=== PATIENT | female | born 1980 | race American Indian/Alaskan Native ===

== ENCOUNTER 2019-03-22 14:08 | Emergency (ER) | payer OTHER ==
--- NOTE | 2019-03-22 14:15 | Emergency Department Report ---
Blank Doc - Documentation Documentation: This is a 38-year-old female that presents with back pain and body aches. Den ies any urinary symptoms. This initial assessment/diagnostic orders/clinical plan/treatment(s) is/are subject to change based on patient's health status, clinical progression and re- assessment by fellow clinical providers in the ED. Further treatment and workup at subsequent clinical providers discretion. Patient/guardians urged not to elope from the ED as their condition may be serious if not clinically assessed and managed. Initial orders include: 1- Patient sent to [facility] for further evaluation and treatment 2- labs 3- UA
[2019-03-22 14:33] LABS: Basophils % (Auto) 0.2 % (0.0-1.8); Hematocrit 37.1 % (30.3-42.9); Lymphocytes # (Auto) 0.6 K/mm3 (1.2-5.4); Lymphocytes % (Auto) 4.8 % (13.4-35.0); Mean Corpuscular HGB Conc 35 % (30-34); Mean Corpuscular Volume 87 fl (79-97); Monocytes # (Auto) 0.9 K/mm3 (0.0-0.8); Monocytes % (Auto) 6.8 % (0.0-7.3); Platelet Count 202 K/mm3 (140-440); Red Blood Count 4.29 M/mm3 (3.65-5.03); Red Cell Distribution Width 12.5 % (13.2-15.2)
[2019-03-22 14:53] LABS: BUN/Creatinine Ratio 8; Blood Urea Nitrogen 5 mg/dL (7-17); Calcium 8.8 mg/dL (8.4-10.2); Hemolysis Index 1
[2019-03-22] MEDS ORDERED: MORPHINE IV ONE (15:39)
[2019-03-22] MEDS ORDERED: ZOFRAN IV ONE (15:39)
[2019-03-22] MEDS ORDERED: NACL 0.9% 1000 ML 1,000 ML IV ONE (15:39)
[2019-03-22] MEDS ORDERED: TYLENOL PO ONE (15:40)
[2019-03-22] MEDS ORDERED: ROCEPHIN/NS 1 GM/50 ML 1 GM/50 ML BAG IV ONE (15:40)
--- NOTE | 2019-03-22 15:44 | Emergency Department Report ---
ED Abdominal Pain HPI - General Chief Complaint: Pain General Stated Complaint: BODY PAIN Time Seen by Provider: 03/22/19 14:13 Source: patient Mode of arrival: Ambulatory Limitations: No Limitations - History of Present Illness Initial Comments: Patient is a 38-year-old female with no significant past medical history. Patient presented to the ER complaining of fever, bilateral flank pain and lower abdominal pain since yesterday. Patient stated that she is nauseated but no vomiting. No diarrhea. Patient denied any chest pain or shortness of breath. Patient denied any vaginal bleeding or vaginal discharge. MD Complaint: abdominal pain, flank pain -: Last night Location: bilateral flank Severity scale (0 -10): 10 Quality: sharp - Related Data Home Medications Medication Instructions Recorded Confirmed Last Taken No Known Home Medications [No 03/22/19 03/22/19 Unknown Reported Home Medications] Allergies Allergy/AdvReac Type Severity Reaction Status Date / Time No Known Allergies Allergy Verified 03/22/19 14:15 ED Review of Systems ROS: Stated complaint: BODY PAIN Other details as noted in HPI Comment: All other systems reviewed and negative Constitutional: chills, fever ENT: denies: throat pain Cardiovascular: palpitations. denies: chest pain Gastrointestinal: abdominal pain, nausea. denies: vomiting, diarrhea, constipation, hematemesis, melena, hematochezia Genitourinary: frequency Musculoskeletal: back pain Neurological: denies: headache, weakness, numbness, paresthesias, confusion, abnormal gait ED Past Medical Hx - Past Medical History Previous Medical History?: No - Surgical History Past Surgical History?: No - Social History Smoking Status: Current Every Day Smoker - Medications Home Medications: Home Medications Medication Instructions Recorded Confirmed Last Taken Type No Known Home Medications [No 03/22/19 03/22/19 Unknown History Reported Home Medications] ED Physical Exam - General Limitations: No Limitations General appearance: alert, in no apparent distress - Head Head exam: Present: atraumatic, normocephalic, normal inspection - Eye Eye exam: Present: normal appearance, PERRL - ENT ENT exam: Present: normal exam, normal orophraynx, mucous membranes moist - Neck Neck exam: Present: normal inspection, full ROM. Absent: tenderness, meningismus, lymphadenopathy, thyromegaly - Respiratory Respiratory exam: Present: normal lung sounds bilaterally - Cardiovascular Cardiovascular Exam: Present: regular rate, normal rhythm, normal heart sounds - GI/Abdominal GI/Abdominal exam: Present: soft, normal bowel sounds. Absent: distended, tenderness, guarding, rebound, rigid, diminished bowel sounds, mass, bruit, pulsatile mass, hernia - Extremities Exam Extremities exam: Present: normal inspection, full ROM, normal capillary refill - Back Exam Back exam: Present: normal inspection, full ROM, CVA tenderness (R), CVA tenderness (L). Absent: tenderness, paraspinal tenderness - Neurological Exam Neurological exam: Present: alert, oriented X3, CN II-XII intact - Psychiatric Psychiatric exam: Present: normal mood - Skin Skin exam: Present: warm, intact, normal color ED Course Vital Signs 03/22/19 03/22/19 03/22/19 14:13 15:55 16:20 Temperature 101.1 F H Pulse Rate 110 H 100 H Respiratory 18 20 18 Rate Blood Pressure 145/86 122/50 [Right] O2 Sat by Pulse 98 99 Oximetry 03/22/19 16:58 Temperature 100.9 F H Pulse Rate 85 Respiratory 14 Rate Blood Pressure [Right] O2 Sat by Pulse 100 Oximetry ED Medical Decision Making - Lab Data Result diagrams: 03/22/19 14:19 03/22/19 14:19 - Radiology Data Radiology results: report reviewed CT abdomen and pelvis with IV contrast showed a left pyelonephritis. No other acute intra-abdominal pathology. - Medical Decision Making Patient is a 38-year-old female with no significant past medical history. Patient presented to the ER complaining of fever, bilateral flank pain and lower abdominal pain since yesterday. Patient stated that she is nauseated but no vomiting. No diarrhea. Patient denied any chest pain or shortness of breath. Patient denied any vaginal bleeding or vaginal discharge. Patient received normal saline, morphine and Zofran and Rocephin. Patient stated that she is feeling much better. Pain level subsided to 0. CT abdomen and pelvis showed a left pyelonephritis consistent with patient's symptoms. Patient advised to follow-up with her primary care physician in the next 2-3 days and to return to the ER if symptoms are not improved. Patient receive a prescription for Levaquin, tramadol and Zofran. Critical care attestation.: If time is entered above; I have spent that time in minutes in the direct care of this critically ill patient, excluding procedure time. ED Disposition Clinical Impression: Abdominal pain, Pyelonephritis Disposition: DC-01 TO HOME OR SELFCARE Is pt being admited?: No Condition: Stable Instructions: Abdominal Pain (ED), Acute Pyelonephritis (ED) Referrals: RIAZ HUDSON [Other] - 3-5 Days Forms: Work/School Release Form(ED)
--- NOTE | 2019-03-22 16:37 | Cat Scan Report ---
PROCEDURE: CT ABDOMEN PELVIS W CON TECHNIQUE: Computerized axial tomography of the abdomen and pelvis was performed after the IV inject ion of iodinated nonionic contrast. CT DOSE LENGTH PRODUCT: 664.9 mGycm HISTORY: abdominal pain/ b/l flank pain COMPARISONS: None . FINDINGS: The lung bases are without infiltrate, pneumothorax or pleural fluid collection. The liver, spleen, pancreas and adrenal glands are unremarkable. There is mild prominence of the renal collecting system bilaterally without evidence of an obstructin g stone. This may be secondary to moderate distention of the urinary bladder at the time of this stud y. There is an approximately 11 mm hypodensity in the left kidney that is too small to characterize b ut most likely represents a cyst. There is slightly heterogeneous enhancement in portions of the left kidney with mild stranding of the left perinephric fat posteriorly. There is mild asymmetric enhancement of the left urothelium in the renal pelvis. These findings are suggestive of left pyelonephritis. The bowel is normal caliber. There is a small amount of free fluid in the pelvis. This is nonspecific in appearance but may be phy siologic in nature. The appendix is normal caliber and contains air. The abdominal aorta is normal caliber. There are mildly prominent para-aortic lymph nodes on the left at the level of the renal hilum. The urinary bladder is moderately distended and unremarkable. The bony structures are unremarkable. IMPRESSION: 1. Findings suggestive of left pyelonephritis. 2. Mild prominence of the renal collecting system bilaterally which may be secondary to moderate dist ention of the urinary bladder at the time of this study. This document is electronically signed by Lissett Rawls MD., March 22 2019 04:35:41 PM ET
[2019-03-22 16:53] LABS: Bacteria,Urine 2+ /HPF (Negative); Bilirubin,Urine NEG (Negative); Blood,Urine MOD (Negative); Color,Urine Yellow (Yellow); Mucus,Urine 1+ /HPF; Protein,Urine <15 mg/dL mg/dL (Negative)
[2019-03-22 17:37] VITALS: BP 105/57
== END 2019-03-22 17:37 | disposition home or self-care (01) ==
LOC: ED 14:08
DX: N12 Tubulo-interstitial nephritis, not specified as acute or chronic (principal); F17.200 Nicotine dependence, unspecified, uncomplicated
CPT/HCPCS: 36415; 74177; 80048; 81001; 82140; 84703; 85025; 87040; 87076; 87086; 87186; 96365; 96375; 99284; J0696; J2270; J2405; J7030; Q9967

== ENCOUNTER 2021-10-02 11:09 | Emergency (ER) | payer OTHER ==
--- NOTE | 2021-10-02 12:54 | Emergency Department Report ---
ED General Adult HPI - General Chief complaint: Chest Pain Stated complaint: cp Time Seen by Provider: 10/02/21 12:39 Source: patient Mode of arrival: Ambulatory Limitations: No Limitations - History of Present Illness Initial comments: Patient is 40 years old female with no significant past medical history. Patient presented to the ER complaining of chest pain. When I asked the patient point to the area that she is having the pain she pointed to the left flank and left upper quadrant area. Patient stated that symptom has been going on for 2 to 3 days. Patient describes her pain as sharp improved with ibuprofen. She denies any shortness of breath, fever, chills cough, nausea or vomiting. Severity scale (0 -10): 6 - Related Data Previous Rx's Medication Instructions Recorded Last Taken Type Ondansetron [Zofran Odt] 4 mg PO Q8HR PRN #14 tab.rapdis 03/22/19 Unknown Rx levoFLOXacin [Levaquin TAB] 500 mg PO QDAY #7 tablet 03/22/19 Unknown Rx traMADoL [Ultram 50 MG tab] 50 mg PO Q4HR PRN #14 tablet 03/22/19 Unknown Rx Allergies Allergy/AdvReac Type Severity Reaction Status Date / Time No Known Allergies Allergy Verified 03/22/19 14:15 ED Review of Systems ROS: Stated complaint: cp Other details as noted in HPI Comment: All other systems reviewed and negative Constitutional: denies: chills, fever Respiratory: denies: cough, shortness of breath, SOB with exertion, SOB at rest Cardiovascular: chest pain Gastrointestinal: denies: abdominal pain, nausea, vomiting, diarrhea, constipation, hematemesis, melena, hematochezia Musculoskeletal: denies: back pain Neurological: denies: headache, weakness, numbness, paresthesias, confusion ED Past Medical Hx - Social History Smoking Status: Current Every Day Smoker - Medications Home Medications: Home Medications Medication Instructions Recorded Confirmed Last Taken Type Ondansetron [Zofran Odt] 4 mg PO Q8HR PRN #14 tab.rapdis 03/22/19 Unknown Rx levoFLOXacin [Levaquin TAB] 500 mg PO QDAY #7 tablet 03/22/19 Unknown Rx traMADoL [Ultram 50 MG tab] 50 mg PO Q4HR PRN #14 tablet 03/22/19 Unknown Rx ED Physical Exam - General Limitations: No Limitations General appearance: alert, in no apparent distress - Head Head exam: Present: atraumatic, normocephalic, normal inspection - Eye Eye exam: Present: normal appearance, PERRL - ENT ENT exam: Present: normal exam, normal orophraynx, mucous membranes moist - Neck Neck exam: Present: normal inspection, full ROM. Absent: tenderness, meningismus - Respiratory Respiratory exam: Present: normal lung sounds bilaterally, chest wall tenderness - Cardiovascular Cardiovascular Exam: Present: regular rate, normal rhythm, normal heart sounds - GI/Abdominal GI/Abdominal exam: Present: soft, normal bowel sounds. Absent: distended, tenderness, guarding, rebound, rigid, organomegaly, mass, bruit, pulsatile mass, hernia - Extremities Exam Extremities exam: Present: normal inspection, full ROM, normal capillary refill. Absent: tenderness, pedal edema, joint swelling, calf tenderness - Back Exam Back exam: Present: normal inspection, full ROM. Absent: CVA tenderness (R), CVA tenderness (L) - Neurological Exam Neurological exam: Present: alert, oriented X3, CN II-XII intact, normal gait, reflexes normal. Absent: motor sensory deficit - Psychiatric Psychiatric exam: Present: normal mood - Skin Skin exam: Present: warm, intact, normal color ED Course Vital Signs 10/02/21 11:10 Temperature 97.5 F L Pulse Rate 56 L Respiratory 18 Rate Blood Pressure 112/56 [Right] O2 Sat by Pulse 100 Oximetry ED Medical Decision Making - Lab Data Result diagrams: 10/02/21 12:57 10/02/21 12:57 - Radiology Data Radiology results: report reviewed - Medical Decision Making Patient is 40 years old female with no significant past medical history. Patient presented to the ER complaining of chest pain. When I asked the patient point to the area that she is having the pain she pointed to the left flank and left upper quadrant area. Patient stated that symptom has been going on for 2 to 3 days. Patient describes her pain as sharp improved with ibuprofen. She denies any shortness of breath, fever, chills cough, nausea or vomiting. EKG is unremarkable. Chest x-ray is negative for acute finding labs reviewed and is unremarkable. Patient stated that she did not want to wait for her urine. Patient advised to follow-up with her primary doctor in the next 2 to 3 days and to return to the ER if she develop any new symptoms. Critical care attestation.: If time is entered above; I have spent that time in minutes in the direct care of this critically ill patient, excluding procedure time. ED Disposition Clinical Impression: Acute chest pain Disposition: HOME / SELF CARE / HOMELESS Is pt being admited?: No Condition: Stable Instructions: Chest Pain (ED), Nonspecific Chest Pain, Adult Referrals: PRIMARY CARE,MD [Primary Care Provider] - 3-5 Days
[2021-10-02 13:06] LABS: Basophils % (Auto) 0.8 % (0.0-1.8); Eosinophils % (Auto) 0.7 % (0.0-4.3); Hematocrit 38.4 % (30.3-42.9); Lymphocytes # (Auto) 1.4 K/mm3 (1.2-5.4); Lymphocytes % (Auto) 48.1 % (13.4-35.0); Mean Corpuscular HGB Conc 34 % (30-34); Mean Corpuscular Volume 89 fl (79-97); Monocytes # (Auto) 0.4 K/mm3 (0.0-0.8); Monocytes % (Auto) 12.6 % (0.0-7.3); Platelet Count 152 K/mm3 (140-440); Red Cell Distribution Width 13.1 % (13.2-15.2)
[2021-10-02 13:28] LABS: Blood Urea Nitrogen 8 mg/dL (7-17); Calcium 8.3 mg/dL (8.4-10.2); Hemolysis Index 10
[2021-10-02 13:30] LABS: BUN/Creatinine Ratio 16
--- NOTE | 2021-10-02 13:45 | XRay Report ---
XR chest routine 2V INDICATION / CLINICAL INFORMATION: Chest Pain. COMPARISON: None available. FINDINGS: SUPPORT DEVICES: None. HEART /PULMONARY VASCULATURE: No significant abnormality. LUNGS / PLEURA: No significant pulmonary or pleural abnormality. No pneumothorax. ADDITIONAL FINDINGS: No significant additional findings. IMPRESSION: 1. No acute findings. Signer Name: Mario Olivera MD Signed: 10/02/2021 1:41 PM Workstation Name: [id number]
[2021-10-02 16:12] VITALS: BP 131/64
--- NOTE | 2021-10-03 17:35 | Electrocardiograph Report ---
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
== END 2021-10-02 16:14 | disposition home or self-care (01) ==
LOC: ED 11:09
DX: R07.89 Other chest pain (principal); R10.32 Left lower quadrant pain
CPT/HCPCS: 36415; 71046; 80048; 83690; 84484; 84703; 85025; 93005; 99283